=== PATIENT | male | born 1980 | race Caucasian/White ===

== ENCOUNTER 2019-07-21 14:09 | Emergency (ER) | payer SELFPAY ==
[~2019-07-21] VITALS: Ht 177.8 cm; Wt 79.4 kg
--- NOTE | 2019-07-21 14:26 | NUR ---
ANGELIA OLSON AT BEDSIDE FOR MSE.
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
[2019-07-21] MEDS: LIDOCAINE HCL 1% 20 ML VIAL TP ONE (14:47)
[2019-07-21] MEDS ORDERED: TDAP DIPH,PERTUSS,TET VAC/PF 0.5 ML DISP.SYRIN IM ONE (15:10)
[2019-07-21] MEDS ORDERED: IBUPROFEN 600 MG TABLET ONE (15:10)
[2019-07-21] MEDS: IBUPROFEN 600 MG TABLET PO ONE (15:19)
[2019-07-21] MEDS: TDAP DIPH,PERTUSS,TET VAC/PF 0.5 ML DISP.SYRIN IM ONE (15:19)
[2019-07-21] MEDS: ACETAMINOPHEN ES 500 MG TABLET PO ONE (15:20)
--- NOTE | 2019-07-21 15:22 | NUR ---
Patient discharged to home in stable conditon. Written and verbal after care instructions given. Patient verbalizes understanding of instructions. ALL BELONGINGS W/ PT. PT SELF-AMBULATED W/O DIFFICULTY.
[2019-07-21 15:23] VITALS: BP 148/92
== END 2019-07-21 15:24 | disposition home or self-care (01) ==
LOC: ER 14:09
DX: S01.81XA Laceration without foreign body of other part of head, initial encounter (principal); F17.200 Nicotine dependence, unspecified, uncomplicated; Y04.2XXA Assault by strike against or bumped into by another person, initial encounter; Y93.89 Activity, other specified; Y92.89 Other specified places as the place of occurrence of the external cause; Y99.8 Other external cause status
CPT/HCPCS: 12052; 90471; 90715; 99284; J3490; A4217; A4663; A9150